=== PATIENT | male | born 1935 | race Caucasian/White ===

== ENCOUNTER 2017-08-23 18:48 | Emergency (ER) | payer MEDICARE ==
[~2017-08-23] VITALS: Ht 175.3 cm; Wt 81.6 kg
--- NOTE | 2017-08-23 18:58 | NUR ---
RECEIVED CALL FROM CAREGIVER CAROL. REQUESTED A CALL UPON PT'S DISCHARGE [phone]
--- NOTE | 2017-08-23 19:00 | NUR ---
82 yo female bb ra, c/o generalized weakness x 1 day. patient assisted to er bed, skin warm and dry, resp even and unlabored. awaiting orders from provider, will continue to monitor
[2017-08-23] MEDS ORDERED: DILTIAZEM HCL 25 MG IV ONE (19:45)
[2017-08-23] MEDS ORDERED: DILTIAZEM HCL 25 MG IV IV ONE (20:00)
[2017-08-23] MEDS ORDERED: IV NS 0.9% 1,000 ML BAG IV ONE (20:00)
[2017-08-23 20:04] LABS: BASOPHILS # (AUTO) 0.1 /CMM (0.0-0.2); BASOPHILS % (AUTO) 0.8 % (0.0-2.0); EOSINOPHILS % (AUTO) 1.7 % (0.0-6.0); HEMATOCRIT 40 % (39-51); HEMOGLOBIN 13.5 g/dL (13.5-17.5); LYMPHOCYTES # (AUTO) 2.1 /CMM (0.8-4.8); LYMPHOCYTES % (AUTO) 26.5 % (20.0-44.0); MEAN CORPUSCULAR HEMOGLOBIN 30 PG (26.0-33.0); MEAN CORPUSCULAR HGB CONC 34 g/dl (31.0-36.0); MEAN CORPUSCULAR VOLUME 89 fL (80-96); MONOCYTES # (AUTO) 0.5 /CMM (0.1-1.30); MONOCYTES % (AUTO) 6.8 % (2.0-12.0); NEUTROPHILS # (AUTO) 5.1 /CMM (1.8-8.9); NEUTROPHILS % (AUTO) 64.2 % (43.0-81.0); PLATELET COUNT (AUTO) 227 /CMM (150-450); RDW COEFFICIENT OF VARIATION 13.3 (11.5-15.0); RED BLOOD CELL COUNT(AUTO) 4.46 MIL/uL (4.5-6.0); WHITE BLOOD COUNT (AUTO) 7.9 K/uL (4.3-11.0)
[2017-08-23 20:18] LABS: CALCIUM, SERUM 8.8 mg/dL (8.5-10.1); CARBON DIOXIDE 24 mmol/L (21-32); CHLORIDE 104 mmol/L (98-107); CREATININE 1.2 mg/dL (0.6-1.3); GLUCOSE 106 mg/dL (74-106); POTASSIUM 4.4 mmol/L (3.5-5.1); SODIUM SERUM 136 mmol/L (136-145); UREA NITROGEN, BLOOD 26 mg/dL (7-18)
[2017-08-23 20:19] LABS: INR 0.97 (0.85-1.15)
[2017-08-23 20:26] LABS: TROPONIN I < 0.017 ng/mL (0.00-0.056)
--- NOTE | 2017-08-23 21:34 | NUR ---
CALLED [facility] FOR TRANSP[facility], [address] [place] [address], ETA 30 MIN, TRIP #[id number]
[2017-08-23 22:03] VITALS: BP 140/99
--- NOTE | 2017-08-23 22:05 | NUR ---
Patient discharged to home in stable condition. Written and verbal after care instructions given. Patient verbalizes understanding of instruction.IV removed. Catheter intact and site benign. Pressure and 4x4 applied to site. No bleeding noted. pt ambulatory with a steady gait VITAL SIGNS WITHIN NORMAL LIMITS.
== END 2017-08-23 22:04 | disposition home or self-care (01) ==
LOC: ER 18:49
DX: R53.1 Weakness (principal); R79.1 Abnormal coagulation profile; R41.82 Altered mental status, unspecified; F03.90 Unspecified dementia, unspecified severity, without behavioral disturbance, psychotic disturbance, mood disturbance, and anxiety; I10 Essential (primary) hypertension; R06.02 Shortness of breath; Z60.2 Problems related to living alone
CPT/HCPCS: 36415; 70450; 71045; 80048; 84484; 85025; 85730; 93005; 96374; 99285; A4606; J3490; J7030; Z7610